=== PATIENT | male | born 1960 | race Caucasian/White ===

== ENCOUNTER 2022-01-14 00:21 | Emergency (ER) | payer MEDICAID ==
[~2022-01-14] VITALS: Ht 182.9 cm; Wt 92.0 kg
[2022-01-14 00:30] VITALS: BP 168/74
[2022-01-14 01:13] LABS: HEMATOCRIT 39.8 % (42.0-52.0); HEMOGLOBIN 13.3 g/dL (14.0-18.0); MEAN CORPUSCULAR HEMOGLOBIN 30.4 pg (28.0-32.0); MEAN CORPUSCULAR VOLUME 90.8 fL (80.0-94.0); PLATELET 200 x1000/uL (130-400); RED BLOOD CELL COUNT 4.38 mill/uL (4.7-6.1); RED CELL DISTRIBUTION WIDTH 13.8 % (11.6-14.6)
[2022-01-14 01:23] LABS: CHLORIDE 107 mEq/L (98-107)
[2022-01-14 01:32] LABS: CREATINE KINASE 201 IU/L (39-308)
== END 2022-01-14 04:40 | disposition home or self-care (01) ==
LOC: ER 00:21
DX: M79.671 Pain in right foot (principal); E11.9 Type 2 diabetes mellitus without complications
CPT/HCPCS: 36415; 73630; 80053; 82550; 82962; 85027; 99284